=== PATIENT | female | born 1980 | race African-American/Black ===

== ENCOUNTER 2020-09-25 06:54 | Outpatient (NON) | payer OTHER, SELFPAY ==
[2020-09-25 22:46] LABS: SARS-CoV-2 RNA PCR Negative
== END 2020-09-25 06:55 ==
LOC: ANHCOVIDDT 06:56
PROVIDERS: PCP Emergency Medicine; Visit Provider Emergency Medicine
DX: Z20.828 Contact with and (suspected) exposure to other viral communicable diseases (principal); B34.9 Viral infection, unspecified
CPT/HCPCS: C9803; U0003; U0005

== ENCOUNTER 2021-01-14 17:15 | Emergency (ER) | payer OTHER, SELFPAY ==
[2021-01-14 17:17] VITALS: BP 132/79; PULSE 81; RESP 16; TEMP 36.4; O2SAT 95
--- NOTE | 2021-01-14 18:01 | ED.GENADULT ---
HPI - General Adult General Chief complaint: Allergic Reaction Stated complaint: allergic reaction, rash Time Seen by Provider: 01/14/21 17:24 History of Present Illness HPI narrative: Patient is a 40-year-old female who presents ER with itching. Ongoing over the last couple weeks. Worse at night. Better when she takes Benadryl. No rash or when she scratches her self she has dermographia. No fevers or chills or sweats. Reports she does use a lot of perfumed laundry detergent fabric softener and also uses a perfumed bubble bath but only uses Dove sensitive skin when washing herself and unscented cocoa butter for her skin. No other allergic exposures. No difficulty breathing or swallowing. No new medications. Related Data Allergies Allergy/AdvReac Type Severity Reaction Status Date / Time No Known Drug Allergies Allergy Unknown none Verified 01/14/21 17:21 Review of Systems Respiratory: Respiratory: Denies dyspnea and Denies wheezing Integumentary/Breasts: Skin/Breast: Reports pruritus, Denies erythema and Denies rash PMFSH Past Medical History Medical History (Updated 01/14/21 @ 18:04 by Christo Chacon MD) Asthma Surgical History Surgical History (Updated 01/14/21 @ 18:03 by Christo Chacon MD) No pertinent past surgical history Social History Social History (Updated 01/14/21 @ 18:03 by Christo Chacon MD) Smoking status: Never smoker Exam Narrative: Exam Narrative: GENERAL: Well-appearing, well-nourished, and in no acute distress. HEAD: Normocephalic, atraumatic. ENT: Mucous membranes moist. Speaking in full sentences and tolerating oral secretions. SKIN: Warm, dry, no rash. NEURO: Alert and oriented x3. PSYCH: Normal mood and affect. Course Course Emergency Course: Discussed a voiding scented soaps and fabric softeners. Recommend taking 24-hour Zyrtec to prevent itching and following up with PCP. Vital Signs Vital signs: Vital Signs Temperature 97.6 F 01/14/21 17:17 Pulse Rate 81 01/14/21 17:17 Respiratory Rate 16 01/14/21 17:17 Blood Pressure 132/79 01/14/21 17:17 Pulse Oximetry 95 01/14/21 17:17 Temperature 97.6 F 01/14/21 17:17 Pulse Rate 81 01/14/21 17:17 Respiratory Rate 16 01/14/21 17:17 Blood Pressure 132/79 01/14/21 17:17 Pulse Oximetry 95 01/14/21 17:17 Medical Decision Making Vital Signs Vital Signs: Vital Signs Temperature 97.6 F 01/14/21 17:17 Pulse Rate 81 01/14/21 17:17 Respiratory Rate 16 01/14/21 17:17 Blood Pressure 132/79 01/14/21 17:17 Pulse Oximetry 95 01/14/21 17:17 Temperature 97.6 F 01/14/21 17:17 Pulse Rate 81 01/14/21 17:17 Respiratory Rate 16 01/14/21 17:17 Blood Pressure 132/79 01/14/21 17:17 Pulse Oximetry 95 01/14/21 17:17 Discharge Plan Discharge Clinical Impression: Contact dermatitis Patient Disposition: Home, Self-Care Condition: Stable Instructions: Contact Dermatitis (ED) Additional Instructions: Discontinue use of perfumed fabric softeners, laundry detergents, and bath soap. Take Zyrtec once daily to help with itching. Follow-up with your PCP. Return to the ER if you cannot breathe, you cannot swallow, or you have additional concerns. Purchase All Free and clear to help with your symptoms. Prescriptions: New cetirizine [Zyrtec] 10 mg tablet 10 mg PO DAILY Qty: 14 RF: 0 Follow-up/Referrals: Satish Chaudhry MD [Primary Care Provider] - 1 Week
== END 2021-01-14 18:16 | disposition home or self-care (01) ==
PROVIDERS: Emergency Provider Emergency Medicine; PCP Emergency Medicine
DX: L25.9 Unspecified contact dermatitis, unspecified cause (principal); J45.909 Unspecified asthma, uncomplicated
CPT/HCPCS: 99283

== ENCOUNTER 2022-08-27 23:48 | Emergency (ER) | payer OTHER, SELFPAY ==
--- NOTE | ~2022-08-27 | XR_ITS ---
EXAMINATION: XR chest 2V DATE: 08/28/2022 03:23 INDICATION: Shortness of breath TECHNIQUE: PA and lateral views of the chest are obtained. COMPARISON: 07/25/2011 FINDINGS: The lungs are free of acute opacities. No pleural effusion or pneumothorax. The cardiomedia stinal silhouette is normal. There is mild thoracic spondylosis. IMPRESSION: 1. No acute cardiopulmonary abnormality. Reviewed, dictated and finalized at location A. OGRAPHIC SURVEYOR
[2022-08-27 23:55] VITALS: BP 133/85; PULSE 115; RESP 18; TEMP 38.4; O2SAT 100
[2022-08-28] VITALS (16 sets, daily range): BP systolic 125–140; BP diastolic 78–89; PULSE 86–108; RESP 14–25; TEMP 37.4; O2SAT 98–100
[2022-08-28] MEDS: ACETAMINOPHEN 500 MG TABLET 1000 MG PO
[2022-08-28 00:40] LABS: Influenza A QL RT-PCR Negative (Negative); Influenza B QL RT-PCR Negative (Negative); RSV RNA, RT-PCR Negative (Negative); SARS-CoV-2 RNA PCR Negative
--- NOTE | 2022-08-28 01:51 | ECG_ITS ---
Measurements Intervals [place] Rate: 86 P: 26 MS: 133 QRS: 52 QRSD: 80 T: -5 QT: 345 QTc: 415 Interpretive Statements SINUS RHYTHM NORMAL EKG NO PREVIOUS ECG AVAILABLE FOR COMPARISON Electronically Signed On 08-28-2022 8:42:42 [employer] OPERATOR [employer] by Maddy Paul M.D.
--- NOTE | 2022-08-28 01:53 | ED.ASTHMA ---
HPI - Asthma General Chief Complaint: Asthma <Rayne Kennedy PA-C - Last Filed: 08/28/22 04:11> Stated Complaint: SOB, hx of asthma <FADIA Acosta Last Filed: 08/28/22 04:11> Time Seen by Provider: 08/28/22 01:11 <FADIA Acosta Last Filed: 08/28/22 04:11> Source: patient <FADIA Acosta Last Filed: 08/28/22 04:11> Mode of arrival: ambulatory <FADIA Acosta Last Filed: 08/28/22 04:11> Limitations: no limitations <FADIA Acosta Last Filed: 08/28/22 04:11> History of Present Illness HPI Narrative: This is a 41-year-old female that presents to the emergency department for cold symptoms present since yesterday. Reports fever, cough, congestion, nausea, and vomiting. Reports history of asthma. Reports she has been feeling short of breath. She ran out of her albuterol inhaler. Reports she is having chest pain with coughing. Denies lower extremity edema. <Rayne Kennedy PA-C - Last Filed: 08/28/22 04:11> Related Data Allergies/Adverse Reactions: Allergies Allergy/AdvReac Type Severity Reaction Status Date / Time No Known Drug Allergies Allergy Unknown none Verified 01/14/21 17:21 <Rayne Kennedy PA-C - Last Filed: 08/28/22 04:11> Review of Systems Review of Systems: CONSTITUTIONAL: Reports fever EYES: Denies redness, or discharge. ENT: Reports rhinorrhea, congestion CARDIOVASCULAR: Reports chest pain. Denies edema. RESPIRATORY: Reports cough and dyspnea. GASTROINTESTINAL: Reports nausea, vomiting GENITOURINARY: Denies dysuria SKIN: Denies rash MUSCULOSKELETAL: Reports myalgia. NEUROLOGIC: Denies weakness. <FADIA Acosta Last Filed: 08/28/22 04:11> All systems reviewed & are unremarkable except as noted in HPI and below <FADIA Acosta Last Filed: 08/28/22 04:11> [facility] Past Medical History Medical History: Medical History (Updated 08/29/22 @ 00:00 by Jeaneth Heaton) Asthma <Rayne Kennedy PA-C - Last Filed: 08/28/22 04:11> Surgical History Surgical History: Surgical History (Updated 01/14/21 @ 18:03 by Christo Chacon MD) No pertinent past surgical history <Rayne Kennedy PA-C - Last Filed: 08/28/22 04:11> Social History Social History: Social History (Updated 08/28/22 @ 01:58 by Rayne Kennedy PA-C) Smoking status: Current every day smoker <Rayne Kennedy PA-C - Last Filed: 08/28/22 04:11> Exam Narrative: GENERAL: Well-appearing, well-nourished, and in no acute distress. HEAD: Normocephalic, atraumatic. EYES: EOMI. ENT: Nares clear, no rhinorrhea or epistaxis. Mucous membranes moist. Oropharynx without tonsillar hypertrophy exudate or other lesions. Bilateral TMs pearly cortés non-bulging NECK: Supple. No adenopathy or masses. CHEST: Clear to auscultation. No respiratory distress. No wheezes rales or rhonchi HEART: Regular rate and rhythm. No murmur heard. Normal peripheral pulses. EXTREMITIES: Normal range of motion. No edema. SKIN: Warm, dry, no rash. NEURO: No focal deficits. Alert and oriented x3. PSYCH: Normal mood and affect <Rayne Kennedy PA-C - Last Filed: 08/28/22 04:11> Course [employer] OPERATOR/PA Physician Supervision For this encounter, I have reviewed the mid-level provider documentation, treatment plan and medical decision making. I have had [id number] time with the patient. physical exam showed a well-appearing 41-year-old female with flu-like symptoms. She did have abnormal vital signs upon arrival which resolved with antipyretics. His workup for other causes of chest pain shortness of breath including PE, ACS pneumonia with essentially negative workup. Patient is re-evaluated and is feeling better and will be discharged home. She return instructions. All questions answered. Patient in agreement w/ disposition. EKG interpretation: Rhythm [sinus], Rate 88, [place] -[normal], [place] -[normal], QRS [narrow], QTC [normal], T waves -[nega
[2022-08-28] MEDS: ALBUTEROL SULFATE (*SP) AEROSOL 1 PUFF 2 PUFF INHALATION (02:20)
[2022-08-28 02:23] LABS: Basophils Absolute Auto 0.1 K/mm3 (0.0-0.1); Eosinophils Absolute Auto 0.1 K/mm3 (0-0.3); Eosinophils Percent Auto 1.4 % (0-4.4); Hematocrit 32.4 % (37.0-47.0); Hemoglobin 10.3 g/dL (12.0-15.0); Immature Granulocyte Absolute 0.02 K/mm3 (0.00-0.031); Immature Granulocyte Percent A 0.2 % (0-0.5); Lymphocytes Absolute Auto 1.43 K/mm3 (0.9-3.2); Lymphocytes Percent Auto 17.6 % (18.3-44.2); Mean Corpuscular HGB Conc 31.8 g/dl (32-36); Mean Corpuscular Hemoglobin 25.1 pg (26-34); Mean Platelet Volume 10.3 fl (7.4-10.4); Monocytes Absolute Auto 0.7 K/mm3 (0.1-0.6); Monocytes Percent Auto 8.3 % (2.6-8.5); Neutrophils Absolute Auto 5.8 K/mm3 (1.3-6.7); Neutrophils Percent Auto 71.5 % (45.5-73.1); Platelet Count Result 309 k/mm3 (150-375); White Blood Count 8.1 K/mm3 (4.5-10.0)
[2022-08-28 02:30] LABS: D Dimer 0.46 ug/mL (<0.48)
[2022-08-28 02:33] LABS: Anion Gap 8 mmol/L (8-16); Blood Urea Nitrogen 5 mg/dL (7-17); Calcium 8.7 mg/dL (8.4-10.2); Carbon Dioxide 26 mmol/L (22-30); Chloride 104 mmol/L (98-107); Estimated CRCL calculation 109 ml/min; Estimated Glomerular Filt Rate > 60; Glucose 86 mg/dL (65-110); Potassium 3.6 mmol/L (3.4-5.0); Sodium 138 mmol/L (137-145)
[2022-08-28 02:44] LABS: Troponin I < 0.012 ng/mL (0.000-0.034)
--- NOTE | 2022-08-28 03:18 | PC.NURSE ---
Report given to SANIA Morales.
== END 2022-08-28 04:34 | disposition home or self-care (01) ==
PROVIDERS: Physician Assistant; Emergency Provider Emergency Medicine; PCP Emergency Medicine
DX: B34.9 Viral infection, unspecified (principal); Z20.822 Contact with and (suspected) exposure to COVID-19; J45.909 Unspecified asthma, uncomplicated; F17.200 Nicotine dependence, unspecified, uncomplicated
CPT/HCPCS: 36415; 71046; 80048; 84484; 85025; 85380; 87637; 93005; 94640; 99284; A9270